=== PATIENT | male | born 1990 | race Caucasian/White ===

== ENCOUNTER 2023-06-10 10:45 | Emergency (ER) | payer OTHER ==
[~2023-06-10] VITALS: Ht 170.2 cm; Wt 74.8 kg
[2023-06-10 10:48] VITALS: BP 137/74; TEMP 98.4; O2SAT 100
== END 2023-06-10 11:45 ==
LOC: ER 10:53
DX: Z02.9 Encounter for administrative examinations, unspecified (principal)